=== PATIENT | female | born 1985 | race Caucasian/White ===

== ENCOUNTER 2016-08-23 06:04 | Inpatient (IN) | payer OTHER ==
[2016-08-20 11:48] LABS: ABSOLUTE EOSINOPHILS # (AUTO) 0.1 10^3/uL (0.0-0.6); ABSOLUTE LYMPHOCYTES (AUTO) 1.3 10^3/uL (0.5-4.7); ABSOLUTE MONOCYTES (AUTO) 0.5 10^3/uL (0.1-1.4); ABSOLUTE NEUT (AUTO) 6.2 10^3/uL (1.7-8.2); BASOPHILS % (AUTO) 0.5 % (0-2); EOSINOPHILS % (AUTO) 0.7 % (0-6); HEMATOCRIT 33.1 % (36.0-47.0); HEMOGLOBIN 11.2 g/dL (12.0-15.5); HGB HCT DIFFERENCE 0.5; LYMPHOCYTES % (AUTO) 16.3 % (13-45); MEAN CORPUSCULAR HEMOGLOBIN 29.6 pg (27.0-33.4); MEAN CORPUSCULAR HGB CONC 33.8 g/dL (32.0-36.0); MEAN CORPUSCULAR VOLUME 88 fl (80-97); MONOCYTES % (AUTO) 5.7 % (3-13); RED BLOOD COUNT 3.78 10^6/uL (3.72-5.28); RED CELL DISTRIBUTION WIDTH 13.9 % (11.5-14.0); SEGMENTED NEUTROPHILS % (AUTO) 76.8 % (42-78); WHITE BLOOD COUNT 8.1 10^3/uL (4.0-10.5)
[2016-08-20 11:57] LABS: APPEARANCE,URINE SLIGHTLY-CLOUDY; BILIRUBIN,URINE NEGATIVE (NEGATIVE); GLUCOSE, URINE NEGATIVE (NEGATIVE); KETONES,URINE NEGATIVE (NEGATIVE); LEUKOCYTE ESTERASE,URINE NEGATIVE (NEGATIVE); NITRITE,URINE NEGATIVE (NEGATIVE); PROTEIN,URINE NEGATIVE (NEGATIVE); URINE SPECIFIC GRAVITY 1.006; UROBILINOGEN,URINE NEGATIVE mg/dL (<2.0)
[2016-08-20 12:20] LABS: URINE BARBITURATES SCREEN NEGATIVE; URINE METHADONE SCREEN NEGATIVE
[2016-08-20 12:32] LABS: URINE OPIATES LOW NEGATIVE; URINE PHENCYCLIDINE SCREEN NEGATIVE
[~2016-08-23 06:04] MED LIST: ACETAMINOPHEN 325 MG TABLET PO PRN; ACETAMINOPHEN INJ/PF 1000 MG/100 ML SDV IV SCH; CEFAZOLIN 1 GM/D5W RTU 1 GM/50 ML RTUPB IV PRN; DIPH/PERTUSS(ACELL)/TETANUS VAC/PF 0.5 ML SYR (>=10YO) IM PRN; IBUPROFEN 800 MG TABLET PO SCH; KETOROLAC TROMETHAMINE INJ/PF 30 MG/1 ML SDV IV SCH; LACTATED RINGERS 1000 ML IV PRN; MEASLES,MUMPS&RUBELLA VACC/PF 0.5 ML VIAL SUBCUT PRN; MORPHINE SULFATE 10 MG/ML INJ IV PRN; OXYCODONE-ACETAMINOPHEN 5-325 MG TABLET PO PRN; OXYTOCIN/NORMAL SALINE 20 UNIT/1,000 ML RTUINJ INJ PRN; PROMETHAZINE HCL INJ 25 MG/1 ML VIAL IM PRN; RINGERS SOLUTION,LACTATED 1,000 ML IV PRN; SIMETHICONE 80 MG TAB.CHEW PO PRN
[2016-08-23] MEDS ORDERED: CEFAZOLIN INJ 1 GM VIAL ONE (06:34)
[2016-08-23] MEDS ORDERED: OXYTOCIN 10 UNIT/ML VIAL ONE (09:02)
[2016-08-23] MEDS ORDERED: OXYTOCIN/NORMAL SALINE 20 UNIT/1,000 ML RTUINJ ONE (09:02)
[2016-08-23] MEDS ORDERED: MIDAZOLAM 2 MG/2 ML INJ ONE (09:02)
[2016-08-23] MEDS ORDERED: METHYLERGONOVINE MALEATE INJ/PF 0.2 MG/1 ML AMPULE ONE (09:03)
[2016-08-23] MEDS ORDERED: FENTANYL CITRATE INJ/PF 100 MCG/2 ML AMPUL ONE ×2 (09:03→12:01)
[2016-08-23] MEDS ORDERED: ACETAMINOPHEN 100 ML IV ONE ×2 (09:03→17:00)
[2016-08-23] MEDS ORDERED: EPHEDRINE SULFATE INJ 50 MG/1 ML AMPULE ONE (09:03)
[2016-08-23] MEDS ORDERED: MORPHINE SULFATE 10 MG/ML INJ IV PRN ×2 (09:35→18:58)
[2016-08-23] MEDS ORDERED: FENTANYL CITRATE INJ/PF 100 MCG/2 ML AMPUL IV PRN ×3 (09:35)
[2016-08-23] MEDS ORDERED: MEPERIDINE HCL/PF INJ 25 MG/1 ML DISP.SYRIN IV PRN (09:35)
[2016-08-23] MEDS ORDERED: DIPHENHYDRAMINE HCL 50 MG/ML VIAL IV PRN (09:35)
[2016-08-23] MEDS ORDERED: OXYCODONE-ACETAMINOPHEN 5-325 MG TABLET PO PRN ×2 (09:35)
[2016-08-23] MEDS ORDERED: ONDANSETRON HCL INJ/PF 4 MG/2 ML SDV IV PRN (09:35)
[2016-08-23] MEDS ORDERED: PROMETHAZINE HCL INJ 25 MG/1 ML VIAL IV PRN ×2 (09:35)
--- NOTE | 2016-08-23 10:28 | OPERATIVE REPORT E ---
Operative Report NAME: IRENE ZAYAS : 1985 AGE: 30Y DATE OF SURGERY: 08/23/2016 ROOM: 222 PREOPERATIVE DIAGNOSES: 1. IUP at 39 weeks. 2. Previous , desires repeat. POSTOPERATIVE DIAGNOSES: 1. IUP at 39 weeks. 2. Previous , desires repeat. SURGEON: LOVELY GARZON M.D. ANESTHESIA: Dr. Galvez with spinal. ESTIMATED BLOOD LOSS: 600 mL. FINDINGS: A male in cephalic presentation with Apgars of 9 and 9. Dense adhesions of the uterus to the anterior abdominal wall. COMPLICATIONS: None. PATHOLOGY: None. PROCEDURE: Low transverse hysterotomy section. PROCEDURE IN DETAIL: The patient was taken to the operating room and prepared and draped in a normal sterile fashion in the supine position with a leftward tilt. A transverse skin incision was made with a scalpel following the patient's previous scar. This was carried through to the underlying layer of fascia with the same scalpel. The fascia was excised in the midline and extended laterally with Leonard's. Fascia was then grasped with Maria Teresa's on the superior aspect and dissected from the rectus muscle sharply with Leonard's. This was repeated on the inferior aspect of the fascia. The rectus muscle was divided with good visualization of the bladder and the uterus and the peritoneal cavity was entered bluntly. The adhesions were noted at this point of the uterus to the anterior abdominal wall and peritoneum, making the decision to keep everything in situ from this point on in the case. A scalpel was used to make the hysterotomy, which was extended laterally with surgeon finger fracture. The was then delivered atraumatically. The nose and mouth were suctioned with a suction bulb and the cord was clamped and cut and the infant was handed off to awaiting pediatricians. The cord blood was collected and the placenta was removed manually. Again, noted that the adhesions were making it difficult, so we decided to continue with our plans for closure in situ, so the hysterotomy edge was located and tagged with a ring forceps. The hysterotomy was then closed with 0 Monocryl in a running locked manner and a second layer of the same suture was used to imbricate to ensure hemostasis. The peritoneal cavity was then cleared of clots and debris and the hysterotomy was reinspected and found to be hemostatic. The rectus muscle and peritoneum were reapproximated with a piece of 2-0 Chromic mattress stitch. The fascia was closed with 0 Vicryl. The subcutaneous layer was closed with plain catgut and the skin was closed with 4-0 Vicryl. Patient tolerated procedure well. Sponge, lap, and needle counts were correct x2. Patient was taken to recovery in stable condition. DICTATING PHYSICIAN: LOVELY GARZON M.D. [id number] Y#: [id number] ID: [id number] JOB#: [id number] ACCT: [id number] cc:LOVELY GARZON M.D. >
[2016-08-23] MEDS ORDERED: ONDANSETRON HCL INJ/PF 4 MG/2 ML SDV ONE (14:32)
[2016-08-23] MEDS ORDERED: KETOROLAC TROMETHAMINE 60 MG/2 ML SDV ONE (14:32)
[2016-08-23] MEDS: PRENATAL VITAMIN W-O CA NO5/FE FUMARATE/FA CAPSULE PO SCH (15:19)
[2016-08-23] MEDS: DOCUSATE SODIUM 100 MG CAPSULE PO SCH ×2 (15:19→17:51)
[2016-08-23] MEDS: KETOROLAC TROMETHAMINE INJ/PF 30 MG/1 ML SDV IV SCH (17:52)
[2016-08-23] MEDS: OXYCODONE-ACETAMINOPHEN 5-325 MG TABLET PO PRN (18:53)
[2016-08-24] MEDS: OXYCODONE-ACETAMINOPHEN 5-325 MG TABLET PO PRN ×3 (00:48→19:26)
[2016-08-24] MEDS: KETOROLAC TROMETHAMINE INJ/PF 30 MG/1 ML SDV IV SCH (02:16)
[2016-08-24 07:37] LABS: HEMATOCRIT 26.9 % (36.0-47.0); HEMOGLOBIN 9.2 g/dL (12.0-15.5); HGB HCT DIFFERENCE 0.7; MEAN CORPUSCULAR HEMOGLOBIN 29.7 pg (27.0-33.4); MEAN CORPUSCULAR HGB CONC 34.1 g/dL (32.0-36.0); MEAN CORPUSCULAR VOLUME 87 fl (80-97); RED BLOOD COUNT 3.08 10^6/uL (3.72-5.28); WHITE BLOOD COUNT 8.7 10^3/uL (4.0-10.5)
--- NOTE | 2016-08-24 09:09 | PDOC PROGRESS REPORT ---
Subjective-OB Subjective: Post Delivery Day: 30 year old. Denies any needs at this time. Pt doing well, no concerns. Regular diet, voiding without difficulty. She reports light bleeding and + flatus. Physical Exam (OB) Vital Signs: Temp Pulse Resp BP Pulse Ox 98.2 F 83 12 112/58 L 100 08/24/16 07:38 08/24/16 07:38 08/24/16 07:38 08/24/16 07:38 08/24/16 07:38 Intake & Output 08/23/16 08/24/16 08/25/16 06:59 06:59 06:59 Intake Total 55891 Output Total 1200 Balance 93273 Weight 73.936 kg - Dressing Removed: No Incision: Dressing, Well Approximated Closure Type: Sutures - Lochia Lochia Amount: Scant < 10 ml Lochia Color: Rubra/Red - Abdomen Description: Soft, Round Hernia Present: No Fundal Description: Firm, Midline Fundal Height: u/u - u/2 Objective-Diagnostic Laboratory: 08/24/16 07:18 08/24/16 07:18 WBC 8.7 RBC 3.08 L Hgb 9.2 L Hct 26.9 L MCV 87 MCH 29.7 MCHC 34.1 RDW 14.0 Plt Count 200 Assessment and Plan(PN) - Assessment and Plan (1) Status post repeat low transverse section Is this a current diagnosis for this admission?: Yes - Time Spent with Patient Time with patient: Less than 15 minutes Medications reviewed and adjusted accordingly: Yes - Disposition Anticipated Discharge: Home Within: within 48 hours
[2016-08-24] MEDS: DOCUSATE SODIUM 100 MG CAPSULE PO SCH ×2 (09:26→17:57)
[2016-08-24] MEDS: PRENATAL VITAMIN W-O CA NO5/FE FUMARATE/FA CAPSULE PO SCH (09:26)
[2016-08-24] MEDS: IBUPROFEN 800 MG TABLET PO SCH ×3 (11:33→23:29)
[2016-08-25] MEDS: IBUPROFEN 800 MG TABLET PO SCH ×4 (05:17→23:07)
[2016-08-25] MEDS: PRENATAL VITAMIN W-O CA NO5/FE FUMARATE/FA CAPSULE PO SCH (10:35)
[2016-08-25] MEDS: DOCUSATE SODIUM 100 MG CAPSULE PO SCH ×2 (10:35→18:54)
--- NOTE | 2016-08-25 11:36 | PDOC DISCHARGE SUMMARY ---
Final Diagnosis Discharge Date: 08/25/16 - Final Diagnosis (1) Term Is this a current diagnosis for this admission?: Yes (2) Anemia Is this a current diagnosis for this admission?: Yes (3) Status post repeat low transverse section Is this a current diagnosis for this admission?: Yes Discharge Data - Discharge Medication Home Medications: Vit#96/Ferrous Fum/FA [ Tablet] 1 tab PO DAILY 10/19/14 Iron 24 mg PO DAILY 08/20/16 Docusate Sodium [Colace 100 mg Capsule] 100 mg PO BID #60 capsule 08/25/16 Ibuprofen [Motrin 800 mg Tablet] 800 mg PO Q8HP PRN #0 tablet 08/25/16 Oxycodone HCl/Acetaminophen [Percocet 5-325 mg Tablet] 1 tab PO Q4HP PRN #30 tablet 08/25/16 Reason(s) for Admission: Ceasarean Section-Repeat Procedures: Ultrasound Intrapartum Procedure(s): : Low Cervical, Transverse - [place] Data Baby 1 Male at 1 minute: 8 at 5 minutes: 9 Weight: 3.912 kg Home with Mother: Yes - pending waldo labs Complications: No - Diagnosis Test Laboratory: Temp Pulse Resp BP Pulse Ox 98.1 F 82 16 108/58 L 99 08/25/16 08:00 08/25/16 08:00 08/25/16 08:00 08/25/16 08:00 08/25/16 08:00 08/20/16 08/20/16 08/24/16 10:35 10:38 07:18 RBC 3.78 3.08 L Hgb 11.2 L 9.2 L Hct 33.1 L 26.9 L Urine Opiates Screen NEGATIVE - Discharge information/Instructions Discharge Activity: Balance Activity w/Rest, No Driving, No Lifting Over 10 Pounds, No Lifting/Push/Pulling, Pelvic Rest Discharge Diet: Regular Disposition: HOME, SELF-CARE Follow up with: [facility] in: 1, Weeks - incision check Physical Exam (OB) Vital Signs: Temp Pulse Resp BP Pulse Ox 98.1 F 82 16 108/58 L 99 08/25/16 08:00 08/25/16 08:00 08/25/16 08:00 08/25/16 08:00 08/25/16 08:00 Intake & Output 08/24/16 08/25/16 08/26/16 06:59 06:59 06:59 Intake Total 30610 300 Output Total 1200 Balance 07863 300 - General General Appearance: Appears well In distress: None - PIH/Pre-Eclampsia Headache: Absent Epigastric Pain: No Visual Changes: No - Dressing Removed: No Incision: Dressing Closure Type: Sutures - Lochia Lochia Amount: Scant < 10 ml Lochia Color: Rubra/Red - Abdomen Description: Soft, Round Hernia Present: No Fundal Description: Firm, Midline Fundal Height: u/u - u/2 - Respiratory Respiratory Status: No respiratory distress - Abdominal Abdominal Notes: passing gas - Extremities Upper extremity: Normal inspection Lower extremities: Normal inspection - Neurological Cognition: Normal Orientation: AAOx4 - bonding well with baby - Psychological Associated symptoms: Normal affect, Normal mood
[2016-08-25] MEDS: OXYCODONE-ACETAMINOPHEN 5-325 MG TABLET PO PRN (16:26)
[2016-08-26] MEDS: IBUPROFEN 800 MG TABLET PO SCH ×2 (05:10→11:58)
--- NOTE | 2016-08-26 09:39 | PDOC PROGRESS REPORT ---
Subjective-OB Subjective: Post Delivery Day: 30 year old. Denies any needs at this time. Ready to go home. Physical Exam (OB) Vital Signs: Temp Pulse Resp BP Pulse Ox 98.3 F 79 16 107/64 99 08/26/16 07:37 08/26/16 07:37 08/26/16 07:37 08/26/16 07:37 08/26/16 07:37 Intake & Output 08/25/16 08/26/16 08/27/16 06:59 06:59 06:59 Intake Total 300 200 Balance 300 200 Baby 1 Male 3.912 kg - PIH/Pre-Eclampsia Headache: Absent Epigastric Pain: No Visual Changes: No - Dressing Removed: No Incision: Dressing Closure Type: Sutures - Lochia Lochia Amount: Scant < 10 ml Lochia Color: Rubra/Red - Abdomen Description: Soft, Round Hernia Present: No Bowel Sounds: Normoactive Flatus Presence: Present Stool: Yes Fundal Description: Firm, Midline Fundal Height: u/u - u/2 Objective-Diagnostic Laboratory: 08/24/16 07:18 Assessment and Plan(PN) - Time Spent with Patient Medications reviewed and adjusted accordingly: Yes - Disposition Anticipated Discharge: Home
[2016-08-26] MEDS: DOCUSATE SODIUM 100 MG CAPSULE PO SCH (09:41)
[2016-08-26] MEDS: PRENATAL VITAMIN W-O CA NO5/FE FUMARATE/FA CAPSULE PO SCH (09:41)
--- NOTE | 2016-08-26 09:46 | PDOC DISCHARGE SUMMARY ---
Final Diagnosis Discharge Date: 08/26/16 - Final Diagnosis (1) Status post repeat low transverse section Is this a current diagnosis for this admission?: Yes (2) Term Is this a current diagnosis for this admission?: Yes (3) Anemia Is this a current diagnosis for this admission?: Yes Discharge Data - Discharge Medication Home Medications: Vit#96/Ferrous Fum/FA [ Tablet] 1 tab PO DAILY 10/19/14 Iron 24 mg PO DAILY 08/20/16 Docusate Sodium [Colace 100 mg Capsule] 100 mg PO BID #60 capsule 08/25/16 Ibuprofen [Motrin 800 mg Tablet] 800 mg PO Q8HP PRN #0 tablet 08/25/16 Oxycodone HCl/Acetaminophen [Percocet 5-325 mg Tablet] 1 tab PO Q4HP PRN #30 tablet 08/25/16 Ferrous Sulfate 325 mg PO BID #60 tablet. 08/26/16 Gestational Age: 39.3 wks Reason(s) for Admission: Ceasarean Section-Repeat Procedures: Ultrasound Intrapartum Procedure(s): : Low Cervical, Transverse - Data Baby 1 Male at 1 minute: 8 at 5 minutes: 9 Weight: 3.912 kg Home with Mother: Yes - Labs at 1600 Complications: No - Diagnosis Test Laboratory: Temp Pulse Resp BP Pulse Ox 98.3 F 79 16 107/64 99 08/26/16 07:37 08/26/16 07:37 08/26/16 07:37 08/26/16 07:37 08/26/16 07:37 08/20/16 08/20/16 08/24/16 10:35 10:38 07:18 RBC 3.78 3.08 L Hgb 11.2 L 9.2 L Hct 33.1 L 26.9 L Urine Opiates Screen NEGATIVE - Discharge information/Instructions Discharge Activity: Balance Activity w/Rest, No Driving, No Lifting Over 10 Pounds, No Lifting/Push/Pulling, Non-Ambulatory Child, Pelvic Rest, Slowly Increase Activity, No tub bath Discharge Diet: Regular Disposition: HOME, SELF-CARE Follow up with: [facility] in: 1, Weeks - incision check
[2016-08-26 10:49] VITALS: BP 108/58
== END 2016-08-26 18:00 | disposition home or self-care (01) | DRG 766 ==
LOC: 2S 06:04
PROVIDERS: ADMIT Obstetrics & Gynecology; ATTEND Obstetrics & Gynecology
PROC: 10D00Z1 Extraction of Products of Conception, Low, Open Approach (ICD-10-PCS; principal; 2016-08-23 09:00)
PROC: 3E0234Z Introduction of Serum, Toxoid and Vaccine into Muscle, Percutaneous Approach (ICD-10-PCS; 2016-08-24)
DX: O34.211 Maternal care for low transverse scar from previous cesarean delivery (principal); O36.0930 Maternal care for other rhesus isoimmunization, third trimester, not applicable or unspecified; O99.334 Smoking (tobacco) complicating childbirth; F17.210 Nicotine dependence, cigarettes, uncomplicated; O99.89 Other specified diseases and conditions complicating pregnancy, childbirth and the puerperium; N73.6 Female pelvic peritoneal adhesions (postinfective); O99.02 Anemia complicating childbirth; D64.9 Anemia, unspecified; Z3A.39 39 weeks gestation of pregnancy; Z37.0 Single live birth
CPT/HCPCS: 1961; 36415; 80307; 81001; 85025; 85027; 85461; 86850; 86900; 86901; J0131; J0690; J1885; J2210; J2250; J2270; J2405; J2590; J2790; J3010; J3490